=== PATIENT | male | born 1960 | race Caucasian/White ===

== ENCOUNTER 2018-03-18 13:05 | Outpatient (REF) | payer MEDICARE, SELFPAY | END 2018-03-18 13:25 | LOC: NCHCN 13:05 | PROVIDERS: PCP Family Medicine; Visit Provider Family Medicine | DX: F41.9 Anxiety disorder, unspecified (principal); Z12.5 Encounter for screening for malignant neoplasm of prostate; Z80.42 Family history of malignant neoplasm of prostate | CPT/HCPCS: 84153 ==

== ENCOUNTER 2020-04-15 20:12 | Outpatient (REF) | payer MEDICARE, SELFPAY ==
[2020-04-15 21:02] LABS: HCT 43.8 % (40.0-50.0); HGB 15.5 g/dL (13.5-17.5); MCH 29.5 pg (27.0-33.0); MCHC 35.4 % (32.0-36.0); MCV 83.3 fL (80-95); MPV 11.5 fL (8.0-11.0); Platelet Count 189 10^3/uL (130-400); RBC 5.26 10^6/uL (4.36-5.78); RDW 12.4 % (11.8-14.1); RDW-SD 36.9 fL; WBC 6.31 10^3/uL (4.4-10.8)
[2020-04-15 21:16] LABS: ALT 40 U/L (16-63); AST 18 U/L (15-37); Albumin 4.5 g/dL (3.4-5.0); Alkaline Phosphatase 147 U/L (46-116); Anion Gap 11.1 mmol/L (3-11); BUN 12 mg/dL (7-18); Bilirubin, Total 0.7 mg/dL (0.2-1.0); CO2 26.9 mmol/L (21.0-32.0); Calcium 9.5 mg/dL (8.5-10.1); Chloride 101 mmol/L (98-107); Cholesterol 191 mg/dL (<200); Glucose 156 mg/dL (74-106); HDL Cholesterol 26 mg/dL (40-60); Potassium 3.6 mmol/L (3.5-5.1); Sodium 139 mmol/L (136-145); Total Protein 7.7 g/dL (6.4-8.2); Triglyceride 666 mg/dL (<150)
[2020-04-15 21:47] LABS: LDL CHOLESTEROL 73 mg/dL (<100)
[2020-04-16 18:08] LABS: PSA, Screening 1.8 ng/mL (0.0-3.5)
== END 2020-04-15 20:13 | disposition home or self-care (01) ==
LOC: NCHCN ADD 20:12
PROVIDERS: PCP Family Medicine; Visit Provider Family Medicine
DX: E11.9 Type 2 diabetes mellitus without complications (principal); Z12.5 Encounter for screening for malignant neoplasm of prostate
CPT/HCPCS: 80053; 80061; 83721; 84153; 85027

== ENCOUNTER 2020-05-05 04:17 | Outpatient (CLI) | payer MEDICARE, SELFPAY ==
[2020-05-05 11:02] LABS: Triglyceride 491 mg/dL (<150)
[2020-05-05 11:18] LABS: LDL CHOLESTEROL 64 mg/dL (<100)
== END 2020-05-05 04:18 | disposition home or self-care (01) ==
LOC: LBO 04:18
PROVIDERS: PCP Family Medicine; Visit Provider Family Medicine
DX: E78.5 Hyperlipidemia, unspecified (principal)
CPT/HCPCS: 36415; 83721; 84478

== ENCOUNTER 2021-04-15 02:15 | Outpatient (CLI) | payer MEDICARE, SELFPAY ==
[2021-04-15 12:14] LABS: Hemoglobin A1C 6.4 % (<5.7)
[2021-04-15 13:02] LABS: ALT 36 U/L (16-63); AST 17 U/L (15-37); Albumin 4.7 g/dL (3.4-5.0); Alkaline Phosphatase 137 U/L (46-116); Anion Gap 10.9 mmol/L (3-11); BUN 21 mg/dL (7-18); Bilirubin, Total 0.8 mg/dL (0.2-1.0); CO2 26.1 mmol/L (21.0-32.0); CREATININE 1.1 mg/dL (0.70-1.30); Calcium 9.6 mg/dL (8.5-10.1); Calculated LDL 100 mg/dL (<100); Chloride 104 mmol/L (98-107); Cholesterol 208 mg/dL (<200); Glucose 165 mg/dL (74-106); HDL Cholesterol 33 mg/dL (40-60); Potassium 4.2 mmol/L (3.5-5.1); Sodium 141 mmol/L (136-145); Triglyceride 379 mg/dL (<150)
[2021-04-18 09:33] LABS: PSA, Screening 1.2 ng/mL (0.0-4.5)
== END 2021-04-15 02:16 | disposition home or self-care (01) ==
LOC: LBO 02:15
PROVIDERS: PCP Family Medicine; Visit Provider Family Medicine
DX: E11.9 Type 2 diabetes mellitus without complications (principal); I10 Essential (primary) hypertension; E78.5 Hyperlipidemia, unspecified; Z12.5 Encounter for screening for malignant neoplasm of prostate; Z80.42 Family history of malignant neoplasm of prostate
CPT/HCPCS: 36415; 80053; 80061; 84153; 83036

== ENCOUNTER → 2021-08-08 14:49 | Outpatient (BNVA) | payer MEDICARE, SELFPAY | PROVIDERS: PCP Family Medicine; Referring Provider Family Medicine; Visit Provider Urology | DX: Z80.42 Family history of malignant neoplasm of prostate (principal); Z12.5 Encounter for screening for malignant neoplasm of prostate; R39.89 Other symptoms and signs involving the genitourinary system | CPT/HCPCS: 99205 ==

== ENCOUNTER 2022-05-05 00:34 | Outpatient (CLI) | payer MEDICARE, SELFPAY ==
--- NOTE | 2022-05-05 13:15 | DI.US_ITS ---
Exam(s) US HERNIA EXAM: US HERNIA CLINICAL HISTORY: RT INGUINAL HERNIA, K40.90; RT GROIN PAIN, R10.31. TECHNIQUE: Dedicated ultrasound of the region of concern/right groin performed COMPARISON: No exams were available for comparison FINDINGS: Study does not reveal evidence of hernia at this level. Incidentally noted are benign appearing inguinal lymph nodes. IMPRESSION: No hernia evident in the right groin region. DATA REPOSITORY:
== END 2022-05-05 00:54 ==
LOC: DI 00:34
PROVIDERS: PCP Family Medicine; Visit Provider Physician Assistant
DX: R10.31 Right lower quadrant pain (principal); K40.90 Unilateral inguinal hernia, without obstruction or gangrene, not specified as recurrent
CPT/HCPCS: 76857

== ENCOUNTER 2022-06-28 16:22 | Outpatient (REF) | payer MEDICARE, SELFPAY ==
[2022-06-28 16:36] LABS: ALT 43 U/L (16-63); AST 23 U/L (15-37); Albumin 4.6 g/dL (3.4-5.0); Alkaline Phosphatase 150 U/L (46-116); Anion Gap 9.5 mmol/L (3-11); BUN 15 mg/dL (7-18); Bilirubin, Total 1.1 mg/dL (0.2-1.0); CO2 27.5 mmol/L (21.0-32.0); CREATININE 1.1 mg/dL (0.70-1.30); Calcium 9.5 mg/dL (8.5-10.1); Chloride 100 mmol/L (98-107); Cholesterol 238 mg/dL (<200); Glucose 241 mg/dL (74-106); HDL Cholesterol 33 mg/dL (40-60); Potassium 4.3 mmol/L (3.5-5.1); Sodium 137 mmol/L (136-145); Triglyceride 773 mg/dL (<150)
[2022-06-28 16:39] LABS: Hemoglobin A1C 7.9 % (<5.7)
[2022-06-28 16:47] LABS: LDL CHOLESTEROL 76 mg/dL (<100)
[2022-06-29 20:06] LABS: PSA, Screening 1.3 ng/mL (<=4.5)
== END 2022-06-28 16:23 | disposition home or self-care (01) ==
LOC: NCHCN 16:22
PROVIDERS: PCP Family Medicine; Visit Provider Physician Assistant
DX: E11.9 Type 2 diabetes mellitus without complications (principal); Z12.5 Encounter for screening for malignant neoplasm of prostate
CPT/HCPCS: 80053; 80061; 83721; 84153; 83036

== ENCOUNTER 2022-10-06 15:41 | Outpatient (REF) | payer MEDICARE, SELFPAY ==
[2022-10-06 17:27] LABS: COMMENT (LAB VIEW ONLY) 83.32 mg/dL; Microalb ug/mg Crea 7.1 ug/mg Cr
== END 2022-10-06 15:42 | disposition home or self-care (01) ==
LOC: NCHCN 15:41
PROVIDERS: PCP Family Medicine; Visit Provider Physician Assistant
DX: E11.9 Type 2 diabetes mellitus without complications (principal)
CPT/HCPCS: 82043; 82570

== ENCOUNTER → 2022-12-19 15:17 | Outpatient (BNVA) | payer MEDICARE, SELFPAY | PROVIDERS: PCP Family Medicine; Referring Provider Family Medicine; Visit Provider Urology | DX: N40.1 Benign prostatic hyperplasia with lower urinary tract symptoms (principal); R35.1 Nocturia; Z80.42 Family history of malignant neoplasm of prostate | CPT/HCPCS: 99213 ==

== ENCOUNTER 2023-05-02 17:29 | Outpatient (REF) | payer MEDICARE, SELFPAY ==
[2023-05-02 20:53] LABS: Source Nasal/Nares
[2023-05-02 21:37] LABS: COVID-19 PCR Negative (Negative)
== END 2023-05-02 17:30 | disposition home or self-care (01) ==
LOC: LBN 17:29
PROVIDERS: PCP Family Medicine; Visit Provider Physician Assistant Medical
DX: B34.9 Viral infection, unspecified (principal)
CPT/HCPCS: 87635; 87070

== ENCOUNTER 2023-05-31 14:23 | Outpatient (REF) | payer OTHER, SELFPAY ==
[2023-05-31 17:11] LABS: Hemoglobin A1C 6.2 % (<5.7)
[2023-05-31 17:12] LABS: ALT 31 U/L (16-63); AST 16 U/L (15-37); Albumin 4.4 g/dL (3.4-5.0); Alkaline Phosphatase 132 U/L (46-116); Anion Gap 12.2 mmol/L (3-11); BUN 20 mg/dL (7-18); CO2 23.8 mmol/L (21.0-32.0); COMMENT (LAB VIEW ONLY) 51.25 mg/dL; Calcium 9.6 mg/dL (8.5-10.1); Calculated LDL 109 mg/dL (<100); Chloride 106 mmol/L (98-107); Cholesterol 216 mg/dL (<200); Estimated GFR 84.57 (mL/min/1.73m2); Glucose 121 mg/dL (74-106); HDL Cholesterol 37 mg/dL (40-60); Microalb ug/mg Crea 13.1 ug/mg Cr; Potassium 4.1 mmol/L (3.5-5.1); Sodium 142 mmol/L (136-145); Total Protein 7.7 g/dL (6.4-8.2); Triglyceride 350 mg/dL (<150)
== END 2023-05-31 14:24 | disposition home or self-care (01) ==
LOC: NCHCN 14:23
PROVIDERS: PCP Family Medicine; Visit Provider Physician Assistant
DX: E11.9 Type 2 diabetes mellitus without complications (principal)
CPT/HCPCS: 80053; 80061; 82043; 82570; 83036

== ENCOUNTER 2024-01-15 14:00 | Outpatient (CLI) | payer OTHER, SELFPAY ==
--- OUTSIDE RECORDS SUMMARY | 2024-01-15 14:03 | XMS_ITS | Continuity of Care Document ---
Author Organization [facility] Address [address] [place] [id number] Care Team Providers Care Pre Sales Architect Name Role Phone NGHIA FRANCO RPA Primary Care Physician Encounter [facility] FIN NBR [id number] Date(s): 12/11/23 - 12/11/[address] [address] Encounter Diagnosis Colon cancer screening(Discharge Diagnosis) - 12/11/23 Discharge Disposition: Home-No Follow Up Attending Physician: Saurabh Sage MD Admitting Physician: Saurabh Sage MD Referring Physician: Saurabh Sage MD Allergies, Adverse Reactions, Alerts Substance Criticality Severity Reaction Reaction Severity Status penicillin High criticality Moderate Rash Ac tive Functional Status 12/11/23 ADLs Independent 12/04/23 Living Situation Home with family car e Immunizations Given and Recorded Vaccine Date Status Refusal Reason influenza virus vaccine, inactivated 1 12/29/21 [facility] l[facility] 1Early/Late Reason: Early/Late Reason: Back-charting an earlier dose Medications busPIRone 15 mg oral tablet TAKE ONE-HALF TABLET BY MOUTH TWICE A DAY NEEDED Start Date: 10/11/23 Status: Ordered chlorthalidone 50 mg oral tablet TAKE ONE TABLET BY MOUTH EVERY DAY Start Date: 10/11/23 Status: Ordered FLUoxetine 10 mg oral capsule TAKE ONE CAPSULE BY MOUTH EVERY DAY Start Date: 10/11/23 Status: Ordered Jardiance 10 mg oral tablet TAKE ONE TABLET BY MOUTH EVERY DAY Start Date: 10/11/23 Status: Ordered lisinopril 40 mg oral tablet TAKE ONE TABLET BY MOUTH EVERY DAY Start Date: 10/11/23 Status: Ordered Metoprolol Succinate ER 100 mg oral tablet, extended release TAKE ONE TABLET BY MOUTH EVERY DAY Start Date: 10/11/23 Status: Ordered omeprazole 20 mg oral delayed release capsule 20 mg = 1 cap, Oral, Daily, # 90 cap, 0 Refill(s) Start Date: 10/11/23 Status: Ordered traZODone 50 mg oral tablet 1 to 2 tabs, Oral, every night at bedtime, 0 Refill(s) Start Date: 10/11/23 Status: Ordered triamcinolone 0.1% topical cream 1 mark, Topical, BID, # 80 g, 0 Refill(s) Start Date: 10/11/23 Status: Ordered Problem List Condition Confirmation Course Effective Dates Status Health St atus Informant Anxiety Confirmed Active Diabetes Confirmed Active Eczema Confirmed Active Chronic GERD Confirmed Active Hemorrhoids Confirmed Active Hypertension Confirmed Active Panic disorder Confirmed Active Vitamin D deficiency Confirmed Active Procedures Procedure Date Related Diagnosis Body Site Status Colonoscopy 1 12/11/23 Completed Colonoscopy 12/21/13 Completed 1auto-populated from documented surgical case Vital Signs Most recent to oldest [Reference Range]: 1 2 3 Temperature Temporal Artery [36-38 Deg C] 36.3 Deg C (12/11/23 10:00 AM) 36.3 Deg C (12/11/23 9:45 AM) 36.5 Deg C (12/11/23 9:24 AM) Temperature Temporal Artery (DegF) [97.3-100 Deg F] 97.34 Deg F (12/11/23 10:00 AM) 97.34 Deg F (12/11/23 9:45 AM) 97.7 Deg F (12/11/23 9:24 AM) Peripheral Pulse Rate [60-100 bpm] 77 bpm (12/11/23 9:45 AM) 77 bpm (12/11/23 9:40 AM) 80 bpm (12/11/23 9:36 AM) Heart Rate Monitored [60-100 bpm] 78 bpm (12/11/23 10:00 AM) 78 bpm (12/11/23 9:45 AM) 76 bpm (12/11/23 9:40 AM) Respiratory Rate [12-24 br/min] 16 br/min (12/11/23 10:00 AM) 16 br/min (12/11/23 9:45 AM) 20 br/min (12/11/23 9:40 AM) Blood Pressure [90-120/60-80 mmHg] 122/63mmHg *HI* (12/11/23 10:00 AM) 100/64mmHg (12/11/23 9:45 AM) 101/60mmHg (12/11/23 9:40 AM) Mean Arterial Pressure, Cuff [65-140 mmHg] 83 mmHg (12/11/23 10:00 AM) 76 mmHg (12/11/23 9:45 AM) 74 mmHg (12/11/23 9:40 AM) Mean Arterial Pressure Cuff 71 mmHg (12/11/23 9:45 AM) 64 mmHg (12/11/23 9:35 AM) 60 mmHg (12/11/23 9:31 AM) Blood Pressure Location Right arm (12/11/23 9:27 AM) Blood Pressure Method Automatic (12/11/23 9:27 AM) Weight 69.40 kg (12/04/23 3:04 PM) Weight Dosing 69.400 kg (12/04/23 3:04 PM) Height 162.56 cm (12/04/23 3:04 PM) Social History Social History Type Response Tobacco Never tobacco user T obacco Use:. Sex Sex Representation Male (finding) Hospital Discharge Instructions Patient Education 12/11/2023 08:25:09 Colonoscopy, Adult, Care After Colonoscopy, Adult, Care After The following information offers guidance on how to care for yourself after your procedure. Your health care provider may also give you more specific instructions. If you have problems or questions, contact your health care provider. What can I expect after the procedure? After the procedure, it is common to have: ??? A small amount of blood in your stool for 24 hours after the procedure. ??? Some gas. ??? Mild cramping or bloating of your abdomen. Follow these instructions at home: Eating and drinking ??? Drink enough fluid to keep your urine pale yellow. ??? Follow instructions from your health care provider about eating or drinking restrictions. ??? Resume your normal diet as told by your health care provider. Avoid heavy or fried foods that are hard to digest. Activity ??? Rest as told by your health care provider. ??? Avoid sitting for a long time without moving. Get up to take short walks every 1???2 hours. This is important to improve blood flow and breathing. Ask for help if you feel weak or unsteady. ??? Return to your normal activities as told by your health care provider. Ask your health care provider what activities are safe for you. Managing cramping and bloating ??? Try walking around when you have cramps or feel bloated. ??? If directed, apply heat to your abdomen as told by your health care provider. Use the heat source that your health care provider recommends, such as a moist heat pack or a heating pad. ??? Place a towel between your skin and the heat source. ??? Leave the heat on for 20???30 minutes. ??? Remove the heat if your skin turns bright red. This is especially important if you are unable to feel pain, heat, or cold. You have a greater risk of getting burned. General instructions ??? If you were given a sedative during the procedure, it can affect you for several hours. Do not drive or operate machinery until your health care provider says that it is safe. ??? For the first 24 hours after the procedure: ??? Do not sign important documents. ??? Do not drink alcohol. ??? Do your regular daily activities at a slower pace than normal. ??? Eat soft foods that are easy to digest. ??? Take bxsr-fco-xzsxlax and prescription medicines only as told by your health care provider. ??? Keep all follow-up visits. This is important. Contact a health care provider if: ??? You have blood in your stool 2???3 days after the procedure. Get help right away if: ??? You have more than a small spotting of blood in your stool. ??? You have large blood clots in your stool. ??? You have swelling of your abdomen. ??? You have nausea or vomiting. ??? You have a fever. ??? You have increasing pain in your abdomen that is not relieved with medicine. These symptoms may be an emergency. Get help right away. Call 911. ??? Do not wait to see if the symptoms will go away. ??? Do not drive yourself to the hospital. Summary ??? After the procedure, it is common to have a small amount of blood in your stool. You may also have mild cramping and bloating of your abdomen. ??? If you were given a sedative during the procedure, it can affect you for several hours. Do not drive or operate machinery until your health care provider says that it is safe. ??? Get help right away if you have a lot of blood in your stool, nausea or vomiting, a fever, or increased pain in your abdomen. This information is not intended to replace advice given to you by your health care provider. Make sure you discuss any questions you have with your health care provider. Document Revised: 10/12/2021 Document Reviewed: 10/12/2021 Elsevier Patient Education ?? 2022 [employer]. Discharge instructions * Kristy Alvarez: PERFORM Event Display: Discharge Instructions Authored Date: [id number] SAURABH CHANDRA :1960 Age:63 years Sex:Male Visit Date:12/11/2023 Primary Care Physician: NGHIA FRANCO RPA [facility] Discharge Instructions We would like to thank you for allowing us to assist you with your healthcare needs. The following includes patient education materials and information regarding your injury/illness. Your Next Steps Discharge Orders Discharge Patient Instructions, You may experience some gas cramps and abdominal bloating Discharge Patient Instructions, Cramping and abdominal bloating should subside in 1 hour or so Discharge Patient Instructions, Passing gas rectally and belching is normal Discharge Patient Instructions, A light first meal may feel better in your stomach Discharge Patient Instructions, You may resume your normal activity in 24 hours Discharge Patient Instructions, It is important that a responsible adult drive you home today Discharge Patient Instructions, Do not sign any contracts, make any major decisions, or drive or operate machinery for 24 hours Discharge Patient Instructions, You should not be responsible for the care of others Discharge Patient Instructions, Avoid alcohol, tranquilizers, sleeping pills, or cold medicines for24 hours Discharge Patient Instructions, Call or come to emergency department if having unusual pain or severe abdominal pain Discharge Patient Instructions, Call or come to emergency department if vomiting blood or having black bowel movements, rectal bleeding or passing blood clots Discharge Patient Instructions, Call or come to emergency department for dizziness Discharge Patient Instructions, Call or come to emergency department chest pain, or shortness of breath Discharge Patient Instructions, Call or come to emergency department for fever greater than 100 ??F Discharge Patient Instructions, Call with any additional questions or concerns Medications What How Much When Instructions Next Dose Unchanged busPIRone (busPIRone 15 mg oral tablet) TAKE ONE-HALF TABLET BY MOUTH TWICE A DAY NEEDED ?? Unchanged chlorthalidone (chlorthalidone 50 mg oral tablet) TAKE ONE TABLET BY MOUTH EVERY DAY ?? Unchanged empagliflozin (Jardiance 10 mg oral tablet) TAKE ONE TABLET BY MOUTH EVERY DAY ?? Unchanged FLUoxetine (FLUoxetine 10 mg oral capsule) TAKE ONE CAPSULE BY MOUTH EVERY DAY ?? Unchanged lisinopril (lisinopril 40 mg oral tablet) TAKE ONE TABLET BY MOUTH EVERY DAY ?? Unchanged metoprolol (Metoprolol Succinate ER 100 mg oral tablet, extended release) TAKE ONE TABLET BY MOUTH EVERY DAY ?? Unchanged omeprazole (omeprazole 20 mg oral delayed release capsule) 1 Capsules Oral (given by mouth) Every day Unchanged traZODone (traZODone 50 mg oral tablet) 1 to 2 tabs Oral (given by mouth) Every night at bedtime Unchanged triamcinolone topical (triamcinolone 0.1% topical cream) 1 Application Topical (on the skin) 2 times a day Your Summary Your Care Team Admitting Physician - Saurabh Sage MD Attending Physician - Saurabh Sage MD Primary Care Physician - NGHIA FRANCO RPA Referring Physician - Saurabh Sage MD Your Diagnosis Colon cancer screening Problems Ongoing - Any problem that you are currently receiving treatment for. Anxiety Chronic GERD Diabetes Eczema Hemorrhoids Hypertension Panic disorder Vitamin D deficiency Procedures Performed ???Colonoscopy (12/11/2023) Discharge Vitals Temperature??(Temporal Artery) 97.3 ??F (36.3 ??C) Heart Rate??(Peripheral) 77 Heart Rate??(Monitored) 78 Respiratory Rate?? 16 Blood Pressure?? 100/64?? SpO2?? 99% Allergies penicillin??(Rash) Education Materials Colonoscopy, Adult, Care After The following information offers guidance on how to care for yourself after your procedure. Your health care provider may also give you more specific instructions. If you have problems or questions, contact your health care provider. What can I expect after the procedure? After the procedure, it is common to have: ? A small amount of blood in your stool for 24 hours after the procedure. ? Some gas. ? Mild cramping or bloating of your abdomen. Follow these instructions at home: Eating and drinking ? Drink enough fluid to keep your urine pale yellow. ? Follow instructions from your health care provider about eating or drinking restrictions. ? Resume your normal diet as told by your health care provider. Avoid heavy or fried foods that are hard to digest. Activity ? Rest as told by your health care provider. ? Avoid sitting for a long time without moving. Get up to take short walks every 1???2 hours. This isimportant to improve blood flow and breathing. Ask for help if you feel weak or unsteady. ? Return to your normal activities as told by your health care provider. Ask your health care provider what activities are safe for you. Managing cramping and bloating ? Try walking around when you have cramps or feel bloated. ? If directed, apply heat to your abdomen as told by your health care provider. Use the heat source that your health care provider recommends, such as a moist heat pack or a heating pad. ? Place a towel between your skin and the heat source. ? Leave the heat on for 20???30 minutes. ? Remove the heat if your skin turns bright red. This is especially important if you are unable to feel pain, heat, or cold. You have a greater risk of getting burned. General instructions ? If you were given a sedative during the procedure, it can affect you for several hours. Do not drive or operate machinery until your health care provider says that it is safe. ? For the first 24 hours after the procedure: ? Do not sign important documents. ? Do not drink alcohol. ? Do your regular daily activities at a slower pace than normal. ? Eat soft foods that are easy to digest. ? Take xsqv-mcv-kajouxw and prescription medicines only as told by your health care provider. ? Keep all follow-up visits. This is important. Contact a health care provider if: ? You have blood in your stool 2???3 days after the procedure. Get help right away if: ? You have more than a small spotting of blood in your stool. ? You have large blood clots in your stool. ? You have swelling of your abdomen. ? You have nausea or vomiting. ? You have a fever. ? You have increasing pain in your abdomen that is not relieved with medicine. These symptoms may be an emergency. Get help right away. Call 911. ? Do not wait to see if the symptoms will go away. ? Do not drive yourself to the hospital. Summary ? After the procedure, it is common to have a small amount of blood in your stool. You may also have mild cramping and bloating of your abdomen. ? If you were given a sedative during the procedure, it can affect you for several hours. Do not drive or operate machinery until your health care provider says that it is safe. ? Get help right away if you have a lot of blood in your stool, nausea or vomiting, a fever, or increased pain in your abdomen. This information is not intended to replace advice given to you by your health care provider. Make sure you discuss any questions you have with your health care provider. Document Revised: 10/12/2021 Document Reviewed: 10/12/2021 [employer] Patient Education ?? 2022 [employer] Patient/Welder Signature Patient Name:SAURABH CHANDRA I have received this information and my questions have been answered. Patient/Welder Name: Patient/Welder Signature: Relationship to Patient: Witness Name/Signature: Date: Electronically Signed on: 12/11/2023 09:55 EDTSigned by:SOUMYA Patient Care team information Care Team Personnel Name: NGHIA FRANCO RPA Position: No Access Member Role: Primary Care Physician [address]: [address] [place] [address] Insurance Providers Guarantor name: SAURABH CHANDRA Health Plan Information #: 1 Payer: [employer] Member Number: [id number] Policy Number: SURJIT Health Plan Information #: 2 Payer: [employer] Member Number: [id number] Policy Number: [id number]
--- OUTSIDE RECORDS SUMMARY | 2024-01-15 14:03 | XMS_ITS | Clinical Summary ---
Author Organization [facility] [place] [address] Care Team Providers Care Pipe Roller Name Role Phone Macie Mena APRN Primary Care Provider [phone] Encounters Date Type Department Care Team Description 12/25/2023 Travel from Last 3 Months Immunizations Name Administration Dates Next Due Influenza Trivalent, Preservative Free 4 Social History Tobacco Use Types Packs/Day Years Used Date Smoking Tobacco: Never Assessed Sex and Gender Information Value Date Recorded Sex Assigned at Not on file Gender Identity Not on file Sexual Orientation Not on file Plan of Treatment Health Maintenance Due Date Last Done Comments CT Colonography 1960 Colonoscopy 1960 Colorectal Cancer Screening 1960 FIT DNA 1960 FIT 1960 Sigmoidoscopy (10 year) with FIT yearly 1960 Sigmoidoscopy 1960 HIV screen 1978 Hepatitis C Screening 1978 Lipid Screening 1978 Tetanus/Diphtheria/Pertussis Vaccines (1 - Tdap) 05/22/1979 Zoster vaccine (1 of 2) 2010 Advance Directive 05/22/2015 Covid-19 Vaccine ( season) 2023, 08/08/2021 Influenza (Flu) vaccine Completed 12/25/2023 Advance Directives Documents on File Type Date Recorded Patient Sap Basis Architect Expl anation Advance Directives and Livin g Will 06/03/2020 3:08 PM 03.16.21 Care Teams Pipe Roller Relationship Specialty Start Date End Date Macie Mena APRN [address] [place] [address] [facility] - General 01/25/10
--- OUTSIDE RECORDS SUMMARY | 2024-01-15 14:03 | XMS_ITS | Continuity of Care Document ---
Author Organization [facility] Ambulatory Clinics Address [address] [place] [address] Care Team Providers Care Terminal Computer Operator Name Role Phone NGHIA FRANCO RPA Primary Care Physician [phone] Encounter [facility] FIN NBR [id number] Date(s): 11/20/23 - 11/20/23 [facility] Ambulatory Clinics [address] [place], [place] [address] Encounter Diagnosis Colon cancer screening(Discharge Diagnosis) - 11/20/23 Discharge Disposition: Home or Self Care Attending Physician: Saurabh Sage MD Referring Physician: NGHIA FRANCO RPA Allergies, Adverse Reactions, Alerts Substance Criticality Severity Reaction Reaction Severity Status penicillin High criticality Moderate Rash Ac tive Assessment and Plan Extracted from: Title:Office Visit Note Author:Saurabh Sage MD Date:11/20/23 1.??Colon cancer screening?? Z12.11 ??Saurabh Raymond??is a 63-year-old male??at average risk for colon cancer referred for repeat colon cancer screening. ??The role of colonoscopy in the prevention detection of colon cancer was reviewed. ??Recommend screening colonoscopy.?? The risks, benefits, and alternatives to this procedure were discussed in detail. ??The need for a bowel prep was outlined. ??Saurabh demonstrated gold understanding and agreement.?? We will schedule him for colonoscopy in the next mutually convenient date. ??Thank you for the opportunity to participate in the care of Saurabh. ??A copy this consultation will be faxed to??FARZAD Leong. Ordered: Surgical Procedure Booking Request [facility], 11/20/23 13:21:00 EDT, 12/11/23 10:00:00 EDT, Z12.11, Encounter for screening colonoscopy, Outpatient, Screening Colonoscopy, Primary Procedure, 60, Diabetic, General, 27, Saurabh Sage MD, Dx Code: Z12.11 Screening Colonoscopy CPT Codes: 06499... ?? Future Appointments Functional Status 11/20/23 Living Environment Home Environment No qualifying data available Other exposure to Infectious Disease Non e Immunizations Given and Recorded Vaccine Date [...] Date Related Diagnosis Body Site Status Colonoscopy 12/21/13 Completed Vital Signs Most recent to oldest [Reference Range]: 1 Temperature Temporal Artery [36-38 Deg C ] 36 Deg C (11/20/23 11:35 AM) Apical Heart Rate [60-100 bpm] 59 bpm *LOW* (11/20/23 11:35 AM) Blood Pressure [90-140/60-90 mmHg] 134/8 6mmHg (11/20/23 11:35 AM) Mean Arterial Pressure, Cuff [65-140 mmH g] 102 mmHg (11/20/23 11:35 AM) Weight 72.85 kg (11/20/23 11:35 AM) Weight Measured (lbs) 160.607 lb (11/20/23 11:35 AM) Weight Dosing 72.850 kg (11/20/23 11:35 AM) Rison Body Weight Calculated 59.598 kg (11/20/23 11:35 AM) Height 163 cm (11/20/23 11:35 AM) Height/Length Measured (inches) 64.17 in ch (11/20/23 11:35 AM) BSA Measured 1.82 m2 (11/20/23 11:35 AM) Body Mass Index 27.42 kg/m2 (11/20/23 11:35 AM) Social History Social History Type Response Tobacco Never tobacco user T obacco Use:. Sex Sex Representation Male (finding) Physician Outpatient Note * Saurabh Sage MD: PERFORM Event Display: Office Clinic Note Physician Authored Date: [id number] SAURABH CHANDRA :1960 Age:63 years Sex:Male Visit Date:11/20/2023 Primary Care Physician: NGHIA FRANCO RPA Chief Complaint Colon cancer screening History of Present Illness Saurabh Andrade??is a 63-year-old male referred by FARZAD Leong for colon cancer screening.??Saurabh reports that his last colonoscopy was 10 years ago. ??This was normal. ??He is had no significant change in his bowel habits since that time. ??She denies constipation, diarrhea, melena,??orhematochezia. ??He is had no??chest pains, shortness of breath, fevers, chills, night sweats,??or unintentional weight loss.?? He??has no significant family history of colon cancer. ??He denies a??significant personal or family history of inflammatory bowel disease.?? He has had no other significant changes in his health. Review of Systems A 10 point review of systems was completed. ??Notable findings are documented above. Physical Exam Vitals & Measurements T:??36?C ??(Temporal Artery)?? HR:??59??(Apical)?? BP:??134/86?? SpO2:??97%?? HT:??163??cm?? WT:??72.85??kg?? BMI:??27.42?? BSA:??1.82?? General: No acute distress, pleasant, conversant CV: RRR Pulmonary: Regular breathing rate and effort Abdomen: Nontender Extremities: No edema Neuro: Grossly intact Assessment/Plan 1.??Colon cancer screening??Z12.11 ??Saurabh Andrade??is a 63-year-old male??at average risk for colon cancer referred for repeat colon cancer screening. ??The role of colonoscopy in the prevention detection of colon cancer was reviewed. ??Recommend screening colonoscopy.?? The risks, benefits, and alternatives to this procedure were discussed in detail. ??The need for a bowel prep was outlined. ??Saurabh demonstrated gold understanding and agreement.?? We will schedule him for colonoscopy in the next mutually convenient date. ??Thank you for the opportunity to participate in the care of Saurabh. ??A copy this consultation will be faxed to??FARZAD Leong. Ordered: Surgical Procedure Booking Request [facility], 11/20/23 13:21:00 EDT, 12/11/23 10:00:00 EDT, Z12.11, Encounter for screening colonoscopy, Outpatient, Screening Colonoscopy, Primary Procedure, 60, Diabetic,General, 27, Saurabh Sage MD, Dx Code: Z12.11 Screening Colonoscopy CPT Codes: 38122... ?? Problem List/Past Medical History Ongoing Anxiety Chronic GERD Diabetes Eczema Hemorrhoids Hypertension Panic disorder Vitamin D deficiency Historical No qualifying data Procedure/Surgical History ???Colonoscopy (12/22/2013) Medications busPIRone 15 mg oral tablet chlorthalidone 50 mg oral tablet FLUoxetine 10 mg oral capsule Jardiance 10 mg oral tablet lisinopril 40 mg oral tablet Metoprolol Succinate ER 100 mg oral tablet, extended release omeprazole 20 mg oral delayed release capsule, 20 mg= 1 cap, Oral, Daily traZODone 50 mg oral tablet, 1 to 2 tabs, Oral, every night at bedtime triamcinolone 0.1% topical cream, 1 mark, Topical, BID Allergies penicillin??(Rash) Social History Alcohol Never Electronic Cigarette/Vaping Electronic Cigarette Use: Never. Substance Use Never Tobacco Never tobacco user Tobacco Use:. Family History Heart disease: Father. Hypertension: Mother and Father. Immunizations Vaccine Date Status influenza virus vaccine, inactivated 12/29/2021 Given Comments : Early/Late Reason: Back-charting an earlier dose Electronically Signed on 11/20/2023 15:02 EDT Saurabh Sage MD Patient Care team information Care Team Personnel Name: NGHIA FRANCO RPA Position: No Access Member Role: Primary Care Physician Address: [address] [place] [address] Insurance Providers Guarantor name: SAURABH CHANDRA Health Plan Information #: 1 Payer: [employer] Member Number: [id number] Policy Number: NA Health Plan Information #: 2 Payer: [employer] Member Number: [id number] Policy Number: NA
--- OUTSIDE RECORDS SUMMARY | 2024-01-15 14:03 | XMS_ITS | Encounter Summary ---
Author Organization [facility] Address [address] [place] [address] Care Team Providers Care Licensed Psychologist Name Role Phone Unavailable Primary Care Provider Unavailabl e Encounter Details Date Type Department Care Team (Late st Contact Info) Description 04/16/2020 Lab Requisition [facility] Pathology & Laboratory Medicine - [facility] [address] [place] [address] Outr Resulting Lab, Provider Social History Tobacco Use Types Packs/Day Years Used Date Smoking Tobacco: Never Assessed Interpersonal Safety Answer Date Record ed Physically Hurt Never 04/16/2020 Verbally Threaten Not on file 04/16/2020 Sex and Gender Information Value Date Recorded Sex Assigned at Not on file Legal Sex Male 10:07 EST Gender Identity Not on file Sexual Orientation Not on file documented as of this encounter Plan of Treatment Not on file documented as of this encounter Procedures Procedure Name Priority Date/Time Associated Diagnosis Comments PSA TOTAL, DIAGNOSTIC Routine 04/15/2020 15:35 EST documented in this encounter Results * PSA TOTAL, DIAGNOSTIC (04/15/2020 15:35 EST) PSA 1.8 0.0 - 3.5 ng/mL 04/16/2020 18:[address] [facility] Blood VENOUS BLOOD / Unknown 04/15/2020 15:35 EST 04/16/2020 16:41 EST Narrative [facility] - 04/16/2020 18:03 EST NOTE: Serum PSA concentration should not be interpreted as absolute evidence for the presence or absence of malignant disease. Assayed on Siemens ADVIA iSkootaur XPT using chemiluminescent technology.??Values obtained by using different assay methods cannot be used interchangeably. us Provider Outr Resulting Lab CHEMISTRY & BLOOD GA S ORDERABLES Final Result [facility] [address] [place] [address] documented in this encounter Visit Diagnoses Not on filedocumented in this encounter
--- OUTSIDE RECORDS SUMMARY | 2024-01-15 14:03 | XMS_ITS | Encounter Summary ---
Author Organization [facility] Address [address] [place] [address] Care Team Providers Care Hand Spring Repairer Name Role Phone Unavailable Primary Care Provider Unavailabl e Encounter Details Date Type Department Care Team (Late st Contact Info) Description 04/15/2021 Lab Requisition [facility] Pathology & Laboratory Medicine - [facility] [address] [place] [address] Outr Resulting Lab, Provider Social History Tobacco [...] Associated Diagnosis Comments PSA TOTAL, DIAGNOSTIC Routine 04/15/2021 11:36 EST documented in this encounter Results * PSA TOTAL, DIAGNOSTIC (04/15/2021 11:36 EST) PSA 1.2 0.0 - 4.5 ng/mL 04/18/2021 9:28 EST [facility] Blood VENOUS BLOOD / Unknown 04/15/2021 11:36 EST 04/15/2021 21:47 EST Narrative [facility] - 04/18/2021 9:28 EST NOTE: Serum PSA concentration should not be interpreted as absolute evidence for the presence or absence of malignant disease. Assayed on Siemens ADVIA Tailored Fitaur XPT using chemiluminescent technology.??Values obtained by using different assay methods cannot be used interchangeably. us Provider Outr Resulting Lab CHEMISTRY & BLOOD GA S ORDERABLES Final Result [facility] [address] [place] [address] documented in this encounter Visit Diagnoses Not on filedocumented in this encounter
--- OUTSIDE RECORDS SUMMARY | 2024-01-15 14:03 | XMS_ITS | Referral Summary ---
Author Organization [facility] Address [address] [place] [address] Care Team Providers Care Computer Programming Supervisor Name Role Phone Unavailable Primary Care Provider Unavailabl e Social History Tobacco Use Types Packs/Day Years Used Date Smoking Tobacco: Never Assessed Interpersonal Safety Answer Date Record ed Physically Hurt Never 04/16/2020 Verbally Threaten Not on file 04/16/2020 Sex and Gender Information Value Date Recorded Sex Assigned at Not on file Legal Sex Male 10:07 EST Gender Identity Not on file Sexual Orientation Not on file Plan of Treatment Not on file
--- OUTSIDE RECORDS SUMMARY | 2024-01-15 14:03 | XMS_ITS | Encounter Summary ---
Author Organization [facility] Address [address] [place] [address] Care Team Providers Care Lab Nurse Name Role Phone Unavailable Primary Care Provider Unavailabl e Encounter Details Date Type Department Care Team (Late st Contact Info) Description 06/29/2022 Lab Requisition [facility] Pathology & Laboratory Medicine - [facility] [address] [place] [address] Outr Resulting Lab, Provider Social History Tobacco [...] Associated Diagnosis Comments PSA TOTAL, DIAGNOSTIC Routine 06/28/2022 9:20 EDT documented in this encounter Results * PSA TOTAL, DIAGNOSTIC (06/28/2022 9:20 EDT) PSA 1.3 <=4.5 ng/mL 06/29/2022 20:01 EDT [facility] Blood VENOUS BLOOD / Unknown 06/28/2022 9:20 EDT 06/29/2022 17:43 EDT Narrative [facility] - 06/29/2022 20:01 EDT NOTE: Serum PSA concentration should not be interpreted as absolute evidence for the presence or absence of malignant disease. Assayed on Siemens ADVIA iCrimefighteraur XPT using chemiluminescent technology.??Values obtained by using different assay methods cannot be used interchangeably. us Provider Outr Resulting Lab CHEMISTRY & BLOOD GA S ORDERABLES Final Result [facility] [address] [place] [address] documented in this encounter Visit Diagnoses Not on filedocumented in this encounter
--- OUTSIDE RECORDS SUMMARY | 2024-01-15 14:03 | XMS_ITS | Clinical Summary ---
Author Organization [facility] Address [address] [place] [address] Care Team Providers Care Disability Representative Name Role Phone Unavailable Primary Care Provider [...] Health Maintenance Due Date Last Done Comments Hepatitis C Screen 1960 RSV Immunization ( o r 60+ Years) (1 - 1-dose 60+ series) 2020 COVID-19 Vaccine (2022-24 season) 2022
--- OUTSIDE RECORDS SUMMARY | 2024-01-15 14:03 | XMS_ITS | Encounter Summary ---
Author Organization [facility] [place] [address] Care Team Providers Care Inspector Health Care Facilities Name Role Phone Macie Mena APRN Primary Care Provider [phone] Encounter Details Date Type Department Care Team (Latest Contact Info) Description 12/25/2023 Travel Social History Tobacco Use Types Packs/Day Years Used Date Smoking Tobacco: Never Assessed Sex and Gender Information Value Date Recorded Sex Assigned at Not on file Gender Identity Not on file Sexual Orientation Not on file documented as of this encounter Plan of Treatment Not on file documented as of this encounter Visit Diagnoses Not on filedocumented in this encounter Care Teams Inspector Health Care Facilities Relationship Specialty Start Date End Date Macie Mena APRN [address] [place] [address] PCP - General 01/25/10 documented as of this encounter
== END 2024-01-15 14:01 | disposition home or self-care (01) ==
LOC: LBO 14:01
PROVIDERS: PCP Family Medicine; Visit Provider Urology
DX: N40.1 Benign prostatic hyperplasia with lower urinary tract symptoms (principal)
CPT/HCPCS: 36415; 84153

== ENCOUNTER → 2024-01-21 14:22 | Outpatient (BNVA) | payer OTHER, SELFPAY | PROVIDERS: PCP Family Medicine; Visit Provider Urology | DX: R35.1 Nocturia (principal); N13.8 Other obstructive and reflux uropathy; Z80.42 Family history of malignant neoplasm of prostate; N40.1 Benign prostatic hyperplasia with lower urinary tract symptoms | CPT/HCPCS: 99214 ==

== ENCOUNTER 2024-07-30 10:07 | Outpatient (REF) | payer MEDICARE, SELFPAY ==
[2024-07-30 15:23] LABS: Hemoglobin A1C 6.2 % (<5.7)
[2024-07-30 15:33] LABS: ALT 31 U/L (16-63); AST 18 U/L (15-37); Albumin 4.2 g/dL (3.4-5.0); Alkaline Phosphatase 133 U/L (46-116); Anion Gap 2.6 mmol/L (3-11); BUN 10 mg/dL (7-18); Bilirubin, Total 0.9 mg/dL (0.2-1.0); CO2 33.4 mmol/L (21.0-32.0); CREATININE 0.9 mg/dL (0.70-1.30); Calcium 9.4 mg/dL (8.5-10.1); Calculated LDL 63 mg/dL (<100); Chloride 103 mmol/L (98-107); Cholesterol 170 mg/dL (<200); Estimated GFR 95.37 (mL/min/1.73m2); Glucose 173 mg/dL (74-106); HDL Cholesterol 31 mg/dL (>or=40); Potassium 4.6 mmol/L (3.5-5.1); Sodium 139 mmol/L (136-145); Total Protein 7.1 g/dL (6.4-8.2); Triglyceride 380 mg/dL (<150)
[2024-07-30 15:40] LABS: COMMENT (LAB VIEW ONLY) 126.77 mg/dL; Microalb ug/mg Crea 6.9 ug/mg Cr
== END 2024-07-30 10:08 | disposition home or self-care (01) ==
LOC: NCHCN 10:07
PROVIDERS: PCP Family Medicine; Visit Provider Physician Assistant
DX: E11.9 Type 2 diabetes mellitus without complications (principal)
CPT/HCPCS: 80053; 80061; 82043; 82570; 83036

== ENCOUNTER 2024-12-27 04:30 | Emergency (ER) | payer MEDICARE, SELFPAY ==
[2024-12-27] VITALS (13 sets, daily range): BP systolic 132–201; BP diastolic 79–113; PULSE 82–96; RESP 16–26; O2SAT 94–100
--- NOTE | 2024-12-27 04:30 | RT.EKG_ITS ---
APPROVED REPORT Exam: Resting ECG Reason for Exam: chest pain Patient Location: E HR:98 bpm ECG Measurements Heart Rate 98 AXIS WV 182 P 72 QRSd 85 QRS 15 QT 348 T 5 QTc 443 Conclusion Sinus rhythm...normal P axis, V-rate 60- 99 Repol abnrm suggests ischemia, anterolateral...ST dep, T neg, I aVL V2-V6 ST elevation, consider inferior injury...ST >0.08mV, II III aVF ST deprressions concerning for posterior [place]
--- NOTE | 2024-12-27 04:45 | RT.EKG_ITS ---
APPROVED REPORT Exam: Resting ECG Reason for Exam: chest pain Patient Location: E HR:90 bpm ECG Measurements Heart Rate 90 AXIS WA 171 P 56 QRSd 83 QRS 9 QT 353 T 4 QTc 435 Conclusion Sinus rhythm...normal P axis, V-rate 60- 99 Ventricular premature complex...V complex w/ short R-R interval Borderline ST depression, anterior leads...ST <-0.07mV, V2-V4 ST deprressions concerning for posterior [place]
--- NOTE | 2024-12-27 04:45 | RT.EKG_ITS ---
APPROVED REPORT Exam: Resting ECG Reason for Exam: Chest pain Patient Location: E HR:82 bpm ECG Measurements Heart Rate 82 AXIS GA 150 P 64 QRSd 91 QRS 21 QT 373 T 23 QTc 436 Conclusion Sinus rhythm...normal P axis, V-rate 60- [address] elevations V7-V9 suggesting occlusive NC
--- NOTE | 2024-12-27 04:56 | W.ED.GENAD ---
Discharge Plan Disposition Patient Disposition: Transfer-Acute Inpatient Care Specific Acute Inpt Facility: [facility] Condition: Critical Discharge Details Clinical Impression: ST elevation TN (STEMI) Primary Care Provider: Felisha Rosales ED Provider: Arabella Doe Home Meds and New Rx's Prescriptions: No Action lisinopril 40 mg tablet 40 mg PO DAILY metoprolol succinate 100 mg tablet extended release 24 hr 100 mg PO DAILY triamcinolone acetonide 0.1 % cream 1 applic topical BID PRN chlorthalidone 50 mg tablet 50 mg PO DAILY fluoxetine 10 mg capsule 10 mg PO DAILY buspirone 15 mg tablet See Rx Instructions PO DAILY Rx Instructions: orally daily; 1 tab cholecalciferol (vitamin D3) 10 mcg (400 unit) capsule 10 mcg PO DAILY Jardiance 10 mg tablet 10 mg PO DAILY trazodone 50 mg tablet 50 mg PO QHS PRN HPI General Mode of arrival: ambulatory. Date/Time Provider Initiated Documentation: 12/27/24 04:49. Limitations to Documentation: no limitations. Information obtained by: patient. HPI Narrative: 64yo M with hx HTN, HLD, DM, no prior cardiac hx, presenting for left sided chest pain. Has intermittently had left sided chest pain for the past two days which resolves without intervention. No alleviating or aggravating factors. This morning woke with severe chest pain, left sided, nonradiating, woke him from sleep. Pain has been constant for the last 2 hours. No shortness of breath, palpitations, lightheadedness. He is otherwise in his usual state of health with no fevers, chills, rash, nasuea, vomtiing, LE edema, UE numbness, tinlging, weakness, or other concerns. Related Data Home Medications ?Medication ?Instructions ?Recorded ?Confirmed chlorthalidone 50 mg tablet 50 mg PO DAILY 07/02/21 01/21/24 fluoxetine 10 mg capsule 10 mg PO DAILY 07/02/21 01/21/24 lisinopril 40 mg tablet 40 mg PO DAILY 07/02/21 01/21/24 metoprolol succinate 100 mg 100 mg PO DAILY 07/02/21 01/21/24 tablet,extended release 24 hr triamcinolone acetonide 0.1 % 1 applic topical BID PRN 07/02/21 12/19/22 topical cream trazodone 50 mg tablet 50 mg PO QHS PRN 08/04/21 12/19/22 empagliflozin 10 mg tablet 10 mg PO DAILY 12/19/22 01/21/24 (Jardiance) buspirone 15 mg tablet See Rx Instructions PO DAILY 01/21/24 01/21/24 cholecalciferol (vitamin D3) 10 10 mcg PO DAILY 01/21/24 01/21/24 mcg (400 unit) capsule Allergies Allergy/AdvReac Type Severity Reaction Status Date / Time Penicillins Allergy Intermediate Hives Verified 01/21/24 14:34 General Stated Complaint: Chest Pain JUAN MANUEL: 2 Review of Systems Narrative: see HPI Exam Narrative Exam Narrative: General: Alert, non-toxic, in no acute distress. Head: Normocephalic, atraumatic Neck: Trachea midline, ?Neck supple. ENT: ?MMM.? Cardiac: ?RRR, no murmurs appreciated Resp: No respiratory distress. CTAB. Abd: ?Soft, non-distended, nontender Extremities: ?No deformities.? No peripheral edema. Neurologic: GCS 15. ? Moves all extremities freely against gravity Course Vital Signs Vital signs: Vital Signs Pulse 90 12/27/24 04:42 Respiratory Rate 20 12/27/24 04:42 Blood Pressure 160/100 H 12/27/24 04:42 Pulse 90 12/27/24 04:42 Respiratory Rate 20 12/27/24 04:42 Blood Pressure 160/100 H 12/27/24 04:42 Blood Pressure Position Supine 12/27/24 04:42 Oxygen Delivery Method Room Air 12/27/24 04:42 Oxygen Flow Rate 0 12/27/24 04:42 Pain Level 9 12/27/24 04:42 Medical Decision Making 64yo M with hx HTN, HLD, DM, no prior cardiac hx, presenting for left sided chest pain. Has intermittently had left sided chest pain for the past two days which resolves without intervention. This morning woke with severe chest pain, left sided, non-radiating, woke him from sleep. Pain has been constant for the last 2 hours. No associated symptoms. Initial eval and resus: Pt arrived at 0430 while this MD was in critical procedure with another patient, EKG performed per nursing protocol at 0444 (time on EKG 7 minutes off from real time) and shown to me mid-procedure shows ST depressions V1-V3, repeat posterior requested and verbal order for 325 of aspirin. 2nd EKG performed at 0454 unchanged/not posterior. I evaluated patient personally at bedside at 0505 while nursing attempting to obtain IV access; he is non-toxic on exam and does not appear acutely distressed. Posterior EKG performed at [address] elevations V7-V9 concerning for posterior STEMI. Hypertensive 160/100, vital signs otherwise reassuring. [facility] [place] and IV access obtained with plan for lytics and heparin bolus/gtt . Reviewed with patient indications of lysis and confirmed he has no CI/bleeding risks. Discussed with [facility] [place] approximately 0525, accepted in transfer under Dr. Haynes, advised 300mg PO plavix in addition to plan as above. No DART available. 0600 Continuing to work on transport; [facility] has medic available however we are still attempting to find RN to accompany. Pt remains hemodynamically stable. 0620 Anticipate RN for transport within next 15 minutes. Pt has had nitro x 3 with some improvement in symptoms though is still having pain. Will start nitro gtt. Remains HDS. Labs significant for initial troponin of 91. Labs reviewed as below, CBC reassuring, coags normal, dimer negative, CMP with hyperglycemia to 311, Mg normal, BNP not suggestive of heart failure, lipase normal. 0625 Pt continues to have pain though is improving on gtt; will continue to titrate up and give dose of IV morphine. 0635 transferred via [facility]. Lab Data Lab results reviewed: Yes I reviewed the patient's lab results. Labs: Laboratory Tests Range/Units 12/27/24 12/27/24 05:03 05:45 WBC (4.4-10.8) 10^3/uL 4.91 RBC (4.36-5.78) 10^6/uL 5.45 Hgb (13.5-17.5) g/dL 16.3 Hct (40.0-50.0) % 45.7 MCV (80-95) fL 84 MCH (27.0-33.0) pg 29.9 MCHC (32.0-36.0) % 35.7 RDW (11.8-14.1) % 12.1 Plt Count (130-400) 10^3/uL 185 MPV (8.0-11.0) fL 10.5 Immature Gran % % 0.8 Neutrophils % % 60.5 Lymphocytes % % 27.1 Monocytes % % 9.2 Eosinophils % % 1.8 Basophils % % 0.6 Nucleated RBC % (0.0-0.3) % 0.0 Absolute Neutrophils (1.2-6.7) 10^3/uL 2.97 Absolute Lymphocytes (1.2-3.4) 10^3/uL 1.33 Absolute Monocytes (0.1-0.8) 10^3/uL 0.45 Absolute Eosinophils (0.0-0.7) 10^3/uL 0.09 Absolute Basophils (0.0-0.2) 10^3/uL 0.03 PT (9.1-11.1) sec 10.2 INR (0.9-1.1) 1.0 APTT (20.6-30.2) sec 24.0 D-Dimer (<500) ng/mlFEU 317 Sodium (136-145) mmol/L 137 Potassium (3.5-5.1) mmol/L 3.6 Chloride (98-107) mmol/L 100 Carbon Dioxide (21.0-32.0) mmol/L 22.7 Anion Gap (3-11) mmol/L 14.3 H BUN (7-18) mg/dL 14 Creatinine (0.70-1.30) mg/dL 1.0 Est GFR (CKD-EPI 2020) (mL/min/1.73m2) 84.05 Glucose (74-106) mg/dL 311 H Calcium (8.5-10.1) mg/dL 9.2 Magnesium (1.8-2.4) mg/dL 2.1 Total Bilirubin (0.2-1.0) mg/dL 0.8 AST (15-37) U/L 22 Alkaline Phosphatase (46-116) U/L 195 H Troponin I (<or=76) ng/L 91 H* Cancelled NT-Pro-B Natriuret Pep (<300) pg/mL 57 Total Protein (6.4-8.2) g/dL 8.0 Albumin (3.4-5.0) g/dL 4.3 Lipase (<78) U/L 73 Critical Care Time Critical Care Time Critical Care Time: Yes Total Critical Care Time: 55 Attestation: Due to a high probability of clinically significant, life threatening deterioration, the patient required my highest level of preparedness to intervene emergently and I personally spent this critical care time directly and personally managing the patient. This critical care time included obtaining a history; examining the patient; pulse oximetry; ordering and review of studies; arranging urgent treatment with development of a management plan; evaluation of patient's response to treatment; frequent reassessment; and, discussions with other providers. This critical care time was performed to assess and manage the high probability of imminent, life-threatening deterioration that could result in multi-organ failure. It was exclusive of separately billable procedures and treating other patients PFSH All Active Problems (Updated 12/27/24 @ 06:02 by Arabella Doe MD) ST elevation TN (STEMI) (Acute) Ichthyosis (Acute) Agoraphobia with panic attacks (Acute) Fatigue (Acute) Vitamin D deficiency (Acute) Diabetes mellitus (Chronic) Acid reflux (Chronic) Anxiety (Chronic) Hyperlipidemia (Acute) Hypertension (Chronic) Family history of prostate cancer (Acute) Hypertension (Chronic) Hyperlipidemia (Acute) Anxiety (Chronic) Acid reflux (Chronic) Diabetes mellitus (Chronic) Vitamin D deficiency (Acute) Fatigue (Acute) Agoraphobia with panic attacks (Acute) Ichthyosis (Acute) Surgical History H/O colonoscopy H/O colonoscopy Social History Smoking risk assessment performed?: No
[2024-12-27] MEDS: Aspirin 325 MG TAB (05:02)
[2024-12-27 05:14] LABS: Abs Immature Grans 0.04 10^3/uL (0.0-0.06); HCT 45.7 % (40.0-50.0); HGB 16.3 g/dL (13.5-17.5); Immature Grans % 0.8 %; MCH 29.9 pg (27.0-33.0); MCHC 35.7 % (32.0-36.0); MCV 84 fL (80-95); MPV 10.5 fL (8.0-11.0); Platelet Count 185 10^3/uL (130-400); RBC 5.45 10^6/uL (4.36-5.78); RDW 12.1 % (11.8-14.1); RDW-SD 36.3 fL; WBC 4.91 10^3/uL (4.4-10.8)
[2024-12-27 05:35] LABS: Albumin 4.3 g/dL (3.4-5.0); Alkaline Phosphatase 195 U/L (46-116); Anion Gap 14.3 mmol/L (3-11); BUN 14 mg/dL (7-18); Bilirubin, Total 0.8 mg/dL (0.2-1.0); CO2 22.7 mmol/L (21.0-32.0); Calcium 9.2 mg/dL (8.5-10.1); Chloride 100 mmol/L (98-107); Estimated GFR 84.05 (mL/min/1.73m2); Glucose 311 mg/dL (74-106); Lipase 73 U/L (<78); Magnesium 2.1 mg/dL (1.8-2.4); NT-proBNP 57 pg/mL (<300); Potassium 3.6 mmol/L (3.5-5.1); Sodium 137 mmol/L (136-145); Total Protein 8.0 g/dL (6.4-8.2)
[2024-12-27] MEDS: Tenecteplase 50 MG KIT 40 MG IVP (05:43)
[2024-12-27] MEDS: Aspirin 81 MG CHEW 324 MG CH (05:45)
[2024-12-27] MEDS: nitroGLYcerin 0.4 MG TAB SL ×3 (05:46→06:10)
[2024-12-27] MEDS: Clopidogrel 300 MG TAB PO (05:48)
[2024-12-27] MEDS: Heparin in 0.45% NaCl 25,000 UNIT/250 ML BAG 8.5 UNIT IVINF (05:55)
[2024-12-27 05:57] LABS: D-Dimer 317 ng/mlFEU (<500)
[2024-12-27 06:00] LABS: INR 1.0 (0.9-1.1); PTT Activated 24.0 sec (20.6-30.2); Prothrombin Time 10.2 sec (9.1-11.1)
[2024-12-27 06:06] LABS: Troponin I 91 ng/L (<or=76)
--- NOTE | 2024-12-27 06:10 | DI.RAD_ITS ---
Exam(s) XR PORTABLE CHEST AP EXAM: XR PORTABLE CHEST AP CLINICAL HISTORY: STEMI TECHNIQUE: 2D digital imaging was performed of the chest. One image was obtained. An AP view was obtained. COMPARISON: No exams were available for comparison FINDINGS: There is monitoring equipment overlying the chest particularly the left lung base. MEDIASTINUM: Normal. HEART: Normal. PULMONARY VASCULATURE: Normal. LUNGS: Clear. PLEURAL SPACE: No pleural effusion or pneumothorax. BONE:Within normal limits for the patient's age. OTHER FINDINGS:Normal. IMPRESSION: 1. No acute pulmonary findings. 2. The preliminary [facility] report was reviewed. DATA REPOSITORY: RADIATION DOSE DELIVERED:
[2024-12-27 06:24] LABS: AST 22 U/L (15-37)
[2024-12-27] MEDS: nitroGLYcerin in D5W 50 MG/250 ML BTL IV (06:24)
[2024-12-27] MEDS: MORPHine 4 MG/ML SYR IVP (06:35)
[2024-12-27 06:42] LABS: ALT 38 U/L (16-63)
--- NOTE | 2024-12-27 07:01 | DI.[facility]_ITS ---
PROCEDURE INFORMATION: Exam: XR Chest Exam date and time: 12/27/2024 6:03 AM Age: 64 years old Clinical indication: Other: Stemi TECHNIQUE: Imaging protocol: Radiologic exam of the chest. Views: 1 view. COMPARISON: No relevant prior studies available. FINDINGS: Lungs: No focal consolidation seen. Pleural spaces: No large pleural effusion seen. Heart/Mediastinum: No cardiomegaly. Bones/joints: No acute abnormality. IMPRESSION: No acute findings to explain reported symptoms. Dictated and Authenticated by: Anna Duarte MD. Orderin Brook Bell MD
== END 2024-12-27 06:40 | disposition short-term general hospital (02) ==
PROVIDERS: Emergency Provider Student in an Organized Health Care Education/Training Program; PCP Family Medicine
DX: I21.3 ST elevation (STEMI) myocardial infarction of unspecified site (principal); I10 Essential (primary) hypertension
CPT/HCPCS: 36415; 80053; 83690; 93005; 96365; 96367; 96375; 99291; 71045; 83735; 83880; 84484; 85025; 85379; 85610; 85730; 93010; J1644; J2270; J2305; J3101

== ENCOUNTER 2025-01-13 00:41 | Outpatient (CLI) | payer MEDICARE, SELFPAY ==
[2025-01-13 22:33] LABS: PSA, Diagnostic 1.5 ng/mL (<=4.5)
== END 2025-01-13 00:42 | disposition home or self-care (01) ==
LOC: LBO 00:41
PROVIDERS: PCP Family Medicine; Visit Provider Urology
DX: N13.8 Other obstructive and reflux uropathy (principal); N40.1 Benign prostatic hyperplasia with lower urinary tract symptoms
CPT/HCPCS: 36415; 84153

== ENCOUNTER 2025-01-20 13:00 | Outpatient (RCR) | payer MEDICARE, SELFPAY ==
--- NOTE | 2025-01-20 12:30 | RT.EKG_ITS ---
APPROVED REPORT Exam: Resting ECG Reason for Exam: CR Intake Appointment Patient Location: O HR:78 bpm ECG Measurements Heart Rate 78 AXIS WV 141 P 72 QRSd 96 QRS 72 QT 422 T 231 QTc 481 Conclusion Sinus rhythm...normal P axis, V-rate 50- 99 Inferior infarct, recent...Q>35mS, ST>0.07mV, T neg, II-aVF Abnrm T, consider ischemia, anterolateral lds...T <-0.20mV, I aVL V2-V6
== END 2025-02-01 23:59 | disposition home or self-care (01) ==
LOC: CR 13:00
PROVIDERS: PCP Family Medicine; Visit Provider Internal Medicine Cardiovascular Disease
DX: I21.29 ST elevation (STEMI) myocardial infarction involving other sites (principal); Z51.89 Encounter for other specified aftercare
CPT/HCPCS: S9472

== ENCOUNTER → 2025-01-20 14:15 | Outpatient (BNVA) | payer MEDICARE, SELFPAY | PROVIDERS: PCP Family Medicine; Visit Provider Urology | DX: N40.0 Benign prostatic hyperplasia without lower urinary tract symptoms (principal); Z80.42 Family history of malignant neoplasm of prostate | CPT/HCPCS: 99213 ==

== ENCOUNTER 2025-02-09 15:35 | Outpatient (REF) | payer MEDICARE, SELFPAY ==
[2025-02-09 21:49] LABS: HCT 41.1 % (40.0-50.0); HGB 13.6 g/dL (13.5-17.5); MCH 29.3 pg (27.0-33.0); MCHC 33.1 % (32.0-36.0); MCV 89 fL (80-95); MPV 11.1 fL (8.0-11.0); Platelet Count 203 10^3/uL (130-400); RBC 4.64 10^6/uL (4.36-5.78); RDW 13.7 % (11.8-14.1); RDW-SD 44.4 fL; WBC 4.95 10^3/uL (4.4-10.8)
[2025-02-09 22:09] LABS: Hemoglobin A1C 6.2 % (<5.7)
[2025-02-09 22:15] LABS: ALT 69 U/L (10-49); AST 43 U/L (<34); Albumin 4.2 g/dL (3.2-5.0); Alkaline Phosphatase 198 U/L (46-116); Anion Gap 13.3 mmol/L (3-11); BUN 19 mg/dL (9-23); Bilirubin, Total 1.00 mg/dL (0.2-1.2); CO2 23.7 mmol/L (20.0-31.0); Calcium 9.3 mg/dL (8.3-10.6); Chloride 107 mmol/L (98-107); Cholesterol 90 mg/dL (<200); Glucose 148 mg/dL (74-106); HDL Cholesterol 23 mg/dL (>40); Potassium 3.7 mmol/L (3.5-5.1); Sodium 144 mmol/L (136-145); Total Protein 6.6 g/dL (5.7-8.2)
[2025-02-18 12:33] LABS: 25-Hydroxy D Total 27 ng/mL
== END 2025-02-09 15:36 | disposition home or self-care (01) ==
LOC: NCHCN 15:35
PROVIDERS: PCP Family Medicine; Visit Provider Physician Assistant
DX: E11.9 Type 2 diabetes mellitus without complications (principal); E55.9 Vitamin D deficiency, unspecified; I10 Essential (primary) hypertension
CPT/HCPCS: 80053; 80061; 82306; 85027; 83036

== ENCOUNTER 2025-02-20 11:13 | Outpatient (CLI) | payer MEDICARE, SELFPAY ==
--- NOTE | 2025-02-20 11:15 | RT.EKG_ITS ---
APPROVED REPORT Exam: Resting ECG Reason for Exam: hx RI s/p CABG Patient Location: O HR:62 bpm ECG Measurements Heart Rate 62 AXIS KS 141 P 57 QRSd 85 QRS 47 QT 407 T 138 QTc 414 Conclusion Sinus rhythm...normal P axis, V-rate 50- 99 Probable left atrial enlargement...P >50mS, <-0.10mV V1 Borderline low voltage, extremity leads...all extremity leads <0.6mV Abnormal T, consider ischemia, lateral leads...T <-0.20mV, I aVL V5 V6
== END 2025-02-20 11:14 | disposition home or self-care (01) ==
LOC: DI.CARD 11:17
PROVIDERS: PCP Family Medicine; Referring Provider Family Medicine; Visit Provider Internal Medicine Cardiovascular Disease
DX: I21.9 Acute myocardial infarction, unspecified (principal); Z95.1 Presence of aortocoronary bypass graft
CPT/HCPCS: 93010

== ENCOUNTER → 2025-02-20 11:13 | Outpatient (BNVA) | payer MEDICARE, SELFPAY | PROVIDERS: PCP Family Medicine; Referring Provider Family Medicine; Visit Provider Internal Medicine Cardiovascular Disease | DX: I21.9 Acute myocardial infarction, unspecified (principal); Z95.1 Presence of aortocoronary bypass graft; Z79.02 Long term (current) use of antithrombotics/antiplatelets | CPT/HCPCS: 99214; 93005 ==

== ENCOUNTER 2025-03-04 10:00 | Outpatient (RCR) | payer MEDICARE, SELFPAY | END 2025-03-04 23:59 | disposition home or self-care (01) | LOC: CR 10:00 | PROVIDERS: PCP Family Medicine; Visit Provider Internal Medicine Cardiovascular Disease | DX: I21.29 ST elevation (STEMI) myocardial infarction involving other sites (principal); Z95.1 Presence of aortocoronary bypass graft; Z51.89 Encounter for other specified aftercare | CPT/HCPCS: S9472 ==